=== PATIENT | female | born 1990 | race African-American/Black ===

== ENCOUNTER 2017-12-02 13:42 | Outpatient (CLI) | payer OTHER | END 2017-12-02 13:43 | disposition home or self-care (01) | LOC: BICULT 13:42 | PROVIDERS: ATTEND Family Medicine | DX: Z3A.18 18 weeks gestation of pregnancy; Z34.82 Encounter for supervision of other normal pregnancy, second trimester | CPT/HCPCS: 76805 ==

== ENCOUNTER 2018-04-22 11:34 | Day surgery (SDC) | payer OTHER ==
[2018-04-22 12:07] VITALS: BP 115/64; TEMP 99; BMI 32.4
--- NOTE | 2018-04-22 15:34 | PRG ---
DATE OF ENCOUNTER: 04/22/2018 PRIMARY DAIRY MANAGEMENT SPECIALIST: Dr. Tami Graff. CHIEF COMPLAINT: Abdominal pains. HISTORY OF PRESENT ILLNESS: The patient is a 27-year-old female with an intrauterine at 38 weeks and 2 days, who was representing to Labor and Delivery with abdominal pains, uterine con tractions that she reports have been occurring frequently this morning. The patient has been seen he re in labor and delivery twice in the last 3 days and was seen by Dr. Tami Graff a couple days ago. She reports her contractions . She reports that she was directed by the nursing staff at her d octor's office to come to Labor and Delivery for evaluation. She states the uterine contractions are painful, but are present. She also states that they do not last for very long time, less than a min [place] or two. The patient denies any fever. She denies fall, headache, chest pain, shortness of breat h. She has some nausea, but denies vomiting. She denies any diarrhea, constipation, any new rashes, any vaginal bleeding, or leakage of fluid. She denies hip problems, knee problems, or muscle weakne ss. She denies urinary urgency or frequency. PAST MEDICAL HISTORY: Negative. PAST SURGICAL HISTORY: Negative. ALLERGIES: No known drug allergies. OBSTETRIC HISTORY: The patient has had 3 term deliveries. SOCIAL HISTORY: Denies drug, alcohol, or tobacco use. MEDICATIONS: The patient recently took Keflex for a boil which she has completed now and vi tamins. OB LABS: RPR in the first trimester was nonreactive. GC and chlamydia were negative in the first tr imester. Hepatitis B surface antigen nonreactive in the first trimester. HIV nonreactive in the thi rd trimester. She is rubella immune. Her GBS status is negative. Her one-hour Glucola test 72. REVIEW OF SYSTEMS: Per HPI. PHYSICAL EXAMINATION: VITAL SIGNS: Blood pressure is 115/66, heart rate of 65, temperature 98.5, and respiratory rate 18. GENERAL: She appears to be in no acute distress. She is alert and oriented, cooperative and pleasan t to interact with. HEAD: Normocephalic, atraumatic. LUNGS: Clear to auscultation bilaterally. HEART: Regular rate and rhythm. ABDOMEN: Soft, gravid, nontender. EXTREMITIES: Nontender, nonedematous. PELVIC: Vulva is without masses, lesions or erythema. Vagina is moist. Cervix is very soft. She i s about 4 cm dilated, 60% effaced, and -2 station. heart tracing performed for abdominal pain in . The duration is about 40 minutes. B aseline is noted to be in the 130s with moderate long-term variability, positive 15 x 15 acceleration s, no decelerations. Tocometer shows some irritability and only 1-2 contractions over that period of time. ASSESSMENT AND PLAN: The patient is a 27-year-old female with an intrauterine at 30 weeks and 2 days in false labor at this time. The patient is on likely progress quickly throug h labor once she enters. The patient has been given term labor precautions. She reports she only li ves a couple blocks from the hospital. She has been encouraged to keep her next OB providers appoint ment should she remain until then. She is GBS negative and has a reactive NST.
== END 2018-04-22 12:50 | disposition home or self-care (01) ==
LOC: L&D/OP 11:34
PROVIDERS: ATTEND Family Medicine
DX: O47.1 False labor at or after 37 completed weeks of gestation (principal); Z3A.38 38 weeks gestation of pregnancy
CPT/HCPCS: 99283

== ENCOUNTER 2018-04-22 19:12 | Inpatient (IN) | payer OTHER ==
[~2018-04-22 19:12] MED LIST: Lidocaine 2% MPF 10 ML AMP (For Epidural Use) ONE
[2018-04-22] MEDS ORDERED: Morphine 10 MG/ML VIAL IM SCH (20:00)
[2018-04-22] MEDS ORDERED: Zolpidem Tartrate 5 MG TAB PO PRN (23:46)
[2018-04-22] MEDS ORDERED: Ondansetron HCl/PF 4 MG/2 ML Vial IVP PRN (23:46)
[2018-04-22] MEDS ORDERED: Butorphanol Tartrate 1 MG/ML VIAL SLOW IVP PRN (23:46)
[2018-04-23] MEDS ORDERED: Lactated Ringer's 1,000 ML IV SCH (00:30)
[2018-04-23] MEDS: Lactated Ringer's 1,000 ML IV SCH ×2 (00:30→10:17)
[2018-04-23 00:58] LABS: Hemoglobin 11.4 g/dL (12.0-16.0); Mean Corpuscular Hemoglobin 26.6 pg (27.0-31.0); Mean Corpuscular Volume 80.6 fL (78.0-98.0); Mean Platelet Volume 10.5 fL (7.4-10.4); Platelet Count 115 thou/uL (130-400); RBC Distribution Width 12.7 % (11.5-14.5); Red Blood Cell (RBC) Count 4.28 mill/uL (4.20-5.40); White Blood Cell (WBC) Count 8.5 thou/uL (4.8-10.8)
[2018-04-23 01:29] LABS: HBSAg Index 0.19 S/CO (0-0.99); Hep B Surf Ag Non-Reactive S/CO (NonReactive); Syphilis Antibody Nonreactive (Nonreactive); Syphilis Antibody Index 0.04 S/CO (<1.00 Non-Reactive)
[2018-04-23] MEDS ORDERED: DISCONTINUE ALL PREVIOUS NARCOTICS FS SCH (01:45)
[2018-04-23] MEDS ORDERED: Bupivacaine 0.5% 20 ML, fentaNYL Citrate/PF 400 MCG in Sodium Chloride 0.9% 72 ML EPIDURAL SCH (01:45)
[2018-04-23] MEDS ORDERED: Ondansetron HCl/PF 4 MG/2 ML Vial IVP PRN ×2 (02:21→09:12)
[2018-04-23] MEDS ORDERED: Acetaminophen 325 MG TAB PO PRN (02:21)
[2018-04-23] MEDS ORDERED: Lactated Ringer's 500 ML IV PRN (02:21)
[2018-04-23] MEDS ORDERED: diphenhydrAMINE 50 MG/ML VIAL IVP PRN (02:21)
[2018-04-23] MEDS ORDERED: Promethazine HCl 25 MG/ML VIAL IM PRN (02:21)
[2018-04-23] MEDS ORDERED: Eucerin (Mineral Oil/Petrolatum,White) 30 gm Jar TOP PRN (02:21)
[2018-04-23] MEDS ORDERED: ePHEDrine/0.9% NaCl/PF SYRINGE 50 mg/10 ml SLOW IVP PRN (02:21)
[2018-04-23] MEDS ORDERED: Naloxone HCl 0.4 mg/ml Vial IVP PRN ×2 (02:21)
[2018-04-23] MEDS ORDERED: Communication Order-Pharmacy FS SCH (02:30)
[2018-04-23] MEDS ORDERED: fentaNYL Citrate/PF 400 MCG, Bupivacaine 0.5% 20 ML in Sodium Chloride 0.9% 72 ML EPIDURAL SCH (02:30)
[2018-04-23] MEDS ORDERED: NS / Oxytocin 40 units/1000ml 1,000 ML ONE ×2 (06:02→09:11)
[2018-04-23] MEDS ORDERED: Lidocaine 1% (PF) 30 ML VIAL ONE (06:02)
[2018-04-23] MEDS ORDERED: Bisacodyl 10 MG SUPP PR PRN (09:12)
[2018-04-23] MEDS ORDERED: NS / Oxytocin 40 units/1000ml 1,000 ML IV SCH (09:12)
[2018-04-23] MEDS ORDERED: HYDROcodone/Acetaminophen 5/325 mg Tablet PO PRN (09:12)
[2018-04-23] MEDS ORDERED: Milk Of Magnesia 30 ML UDCUP PO PRN (09:12)
[2018-04-23] MEDS ORDERED: Acetaminophen/Codeine 30-300mg Tablet PO PRN (09:12)
[2018-04-23] MEDS ORDERED: diphenhydrAMINE 25 MG CAP PO PRN (09:12)
[2018-04-23] MEDS ORDERED: Preparation H Ointment 28 GM TUBE PR PRN (09:12)
[2018-04-23] MEDS ORDERED: Benzocaine/Menthol 20-0.5% 60 ML CAN TOP PRN (09:12)
[2018-04-23] MEDS ORDERED: Lanolin Ointment 7 GM TUBE TOP PRN (09:12)
[2018-04-23] MEDS ORDERED: Docusate Calcium (SURFAK) 240 MG CAP PO SCH (09:30)
[2018-04-23] MEDS ORDERED: Ferrous Sulfate 325 MG TAB PO SCH (09:30)
[2018-04-23] MEDS ORDERED: Prenatal Vitamin 1 TAB PO SCH (09:30)
[2018-04-23] MEDS: Ibuprofen 800 MG TAB PO SCH ×2 (13:41→21:54)
[2018-04-23] MEDS: Ferrous Sulfate 325 MG TAB PO SCH (15:39)
[2018-04-23] MEDS: Docusate Calcium (SURFAK) 240 MG CAP PO SCH (21:54)
[2018-04-24] MEDS: Ibuprofen 800 MG TAB PO SCH ×2 (05:48→14:33)
[2018-04-24 08:23] VITALS: BP 105/63; TEMP 98.4
[2018-04-24] MEDS ORDERED: Prenatal Vitamin 1 TAB PO SCH (09:00)
[2018-04-24] MEDS: Docusate Calcium (SURFAK) 240 MG CAP PO SCH (09:14)
[2018-04-24] MEDS: Ferrous Sulfate 325 MG TAB PO SCH ×2 (09:14→15:48)
== END 2018-04-24 16:50 | disposition home or self-care (01) | DRG 775 ==
LOC: L&D/OP 19:12 → L&D 04-23 01:25 → 3SW 04-23 09:19
PROVIDERS: ADMIT Obstetrics & Gynecology; ATTEND Family Medicine
PROC: 10E0XZZ Delivery of Products of Conception, External Approach (ICD-10-PCS; principal; 2018-04-23)
PROC: 10907ZC Drainage of Amniotic Fluid, Therapeutic from Products of Conception, Via Natural or Artificial Opening (ICD-10-PCS; 2018-04-23)
DX: O80 Encounter for full-term uncomplicated delivery (principal); Z3A.38 38 weeks gestation of pregnancy; Z37.0 Single live birth
CPT/HCPCS: 36415; 51702; 85027; 86780; 86850; 86900; 86901; 87340; 99283; 99285; J2001; J2270; J3010; J3490; J7050

== ENCOUNTER 2019-11-08 22:17 | Observation (INO) | payer OTHER, SELFPAY ==
[2019-11-08 23:07] LABS: #Eosinphils 0.1 thou/uL (0.0-0.7); #Lymphocytes 2.5 thou/uL (1.20-3.40); #Monocytes 0.4 thou/uL (0.11-0.59); #Neutrophils 4.9 thou/uL (1.40-6.50); %Basophils 0.4 % (0.0-1.0); %Eosinophils 0.7 % (0.0-10.0); %Lymphocytes 31.6 % (21.0-51.0); %Monocytes 5.5 % (0.0-10.0); %Neutrophils 61.9 % (42.0-75.0); Hemoglobin 11.8 g/dL (12.0-16.0); Mean Corpuscular HGB CONC 32.5 g/dL (32.0-36.0); Mean Corpuscular Hemoglobin 26.2 pg (27.0-31.0); Mean Corpuscular Volume 80.5 fL (78.0-98.0); Mean Platelet Volume 9.7 fL (7.4-10.4); Platelet Count 170 thou/uL (130-400); RBC Distribution Width 13.1 % (11.5-14.5); Red Blood Cell (RBC) Count 4.49 mill/uL (4.20-5.40); White Blood Cell (WBC) Count 7.9 thou/uL (4.8-10.8)
[2019-11-08 23:29] LABS: ALT (SGPT) 16 U/L (8-55); AST (SGOT) 13 U/L (5-34); Albumin 3.9 g/dL (3.5-5.0); Alkaline Phosphatase 61 U/L (40-110); Anion Gap 12 mmol/L (10-20); BUN (Urea Nitrogen) 10 mg/dL (7.0-18.7); Bilirubin, Total 0.4 mg/dL (0.2-1.2); Calc. Creatinine Clearance 0 mL/min (70-130); Calcium 8.8 mg/dL (7.8-10.44); Carbon Dioxide 25 mmol/L (22-29); Chloride 108 mmol/L (98-107); Estimated GFR-MDRD Greater than 90; Globulin 3.5 g/dL (2.4-3.5); Glucose 104 mg/dL (70-105); Potassium 3.5 mmol/L (3.5-5.1); Protein, Total 7.4 g/dL (6.0-8.3); Sodium 141 mmol/L (136-145)
[2019-11-08 23:31] LABS: Bacteria/HPF None Seen HPF (None Seen); Bilirubin Negative (Negative); Blood, Urine Trace (Negative); Clarity Extra Turbid (Clear); Glucose, Urine (Dipstick) Normal (Negative); Leukocyte Negative Leu/uL (Negative); Nitrite Negative (Negative); Protein, Urine (Dipstick) Negative (Neg-Trace); RBC/HPF 0-3 HPF (0-3); Squamous Epithelial 0-3 HPF (0-3); Urobilinogen Normal mg/dL (Less than 2); WBC/HPF None Seen HPF (0-3)
[2019-11-08 23:33] LABS: Pregnancy Test - Urine (BHCG) Negative (Negative); Pregu Control Background? CLEAR/WHITE (CLR/WHITE); Pregu Control Bar Appear? YES (CONTROL BAR)
[2019-11-09] MEDS ORDERED: Morphine 4 MG/ML VIAL ONE (02:10)
[2019-11-09] MEDS ORDERED: Piperacillin/Tazobactam 4.5 GM VIAL ONE (02:10)
[2019-11-09] MEDS ORDERED: Ondansetron PF 4 MG/2 ML Vial ONE ×2 (02:10→11:22)
[2019-11-09] MEDS ORDERED: Ondansetron ODT 4 MG TAB SL PRN (03:18)
[2019-11-09] MEDS ORDERED: Sodium Chloride 0.9% 1,000 ML IV SCH (03:18)
[2019-11-09] MEDS ORDERED: Ondansetron PF 4 MG/2 ML Vial IVP PRN (03:18)
[2019-11-09] MEDS ORDERED: Morphine 4 MG/ML VIAL SLOW IVP PRN (03:19)
[2019-11-09 03:26] VITALS: BMI 35.6
[2019-11-09] MEDS ORDERED: Acetaminophen 500 MG TAB PO PRN (07:01)
[2019-11-09] MEDS ORDERED: Acetaminophen 500 MG TAB PO SCH (07:15)
--- NOTE | 2019-11-09 07:15 | HP ---
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 She has for the last week experienced epigastric right upper quadrant pain, back radiation, nausea. She presents to the emergency room with ultrasound demonstrating gallstones, normal bile duct caliber, and normal liver function test. She is admitted with cholecystitis. ALLERGIES: NONE. SOCIAL HISTORY: Tobacco, occasionally. Alcohol, occasionally. MEDICATIONS: None routinely. PAST SURGICAL AND MEDICAL HISTORY: None routinely. REVIEW OF SYSTEMS: Ten-point noncontributory. PHYSICAL EXAMINATION: VITAL SIGNS: Height 5 feet and 3 inches, 201 pounds, 35 BMI. Temperature 98.7, pulse 66, and blood pressure 120/67. HEAD, EARS, EYES, NOSE, AND THROAT: Unremarkable. Sclerae are nonicteric. LUNGS: Clear to auscultation. CARDIAC: Regular rate and rhythm without murmur or gallop. ABDOMEN: Soft, tenderness in the right upper quadrant. No guarding or rebound. SKIN: Nonjaundiced. NEUROLOGICAL: Intact. EXTREMITIES: No ankle edema. LYMPHATICS: No lymphadenopathy in neck, axilla, or groin. ASSESSMENT AND PLAN: Acute cholecystitis, cholelithiasis. Recommend laparoscopic video cholecystectomy. Risks of infection, bleeding, visceral and biliary injury discussed. Questions answered. Job ID: [id number]
--- NOTE | 2019-11-09 07:41 | ULT ---
PRELIMINARY REPORT/DIRECT RADIOLOGY/EMERGENCY AFTER HOUS PROCEDURE: This report was discussed with Sharer, Clara GREENBERG by Elif Nguyen on Nov 09, 2019 01:27:00 CDT. Addendum electronically signed by Elif Nguyen on November 09, 2019 1:27:43 AM CDT EXAM: US Abdomen Limited, Right Upper Quadrant. CLINICAL HISTORY: Epigastric pain that radiates to back x 1 day, N/V TECHNIQUE: Real-time ultrasound of the right upper quadrant with image documentation. COMPARISON: None provided. FINDINGS: LIVER: Unremarkable. Measures 16.8 cm GALLBLADDER: Cholelithiasis is noted with gallbladder wall thickening at 4.5 mm and pericholecystic f luid is identified with a positive sonographic Valdez's sign. COMMON BILE DUCT: No dilation. Measures 4.5 mm PANCREAS: Unremarkable as visualized. The distal pancreas is obscured by overlying bowel gas. RIGHT KIDNEY: Unremarkable. No hydronephrosis. Measures 10.8 cm IMPRESSION: The findings are consistent with acute cholecystitis ELECTRONICALLY SIGNED BY: Rohit Esparza MD Nov 09, 2019 1:24:08 AM CDT FINAL REPORT RIGHT UPPER QUADRANT ULTRASOUND: DATE: 11/09/2019. COMPARISON: None. HISTORY: Epigastric pain radiating to the back for one day with nausea and vomiting. FINDINGS: I agree with the preliminary report. The pancreas is not well assessed secondary to bowel g as. No focal liver lesion or intrahepatic biliary dilatation. Numerous echogenic stones are seen within the gallbladder lumen. Gallbladder wall appears thickened, measuring of 4-5 mm. Common bile duct caliber is normal, approximately 4-5 mm. The roller billet mill reports a positive Valdez's sign. The right kidney measures 10.9 cm in craniocaudal dimension and demonstrates no evidence for stone, h ydronephrosis, or mass. IMPRESSION: Gallstones with mild gallbladder wall thickening and positive sonographic Valdez's sign, consistent with acute cholecystitis in the proper clinical setting. Transcribed Date/Time: 11/09/2019 8:10 AM
[2019-11-09] MEDS ORDERED: Sodium Chloride 0.9% 100 ML ONE (07:55)
[2019-11-09] MEDS ORDERED: HYDROmorphone 0.5 MG/0.5 ML SYRINGE ONE (07:55)
[2019-11-09] MEDS ORDERED: Piperacillin/Tazobactam 3.375 GM VIAL ONE (07:55)
[2019-11-09] MEDS ORDERED: Fentanyl 100 MCG/2 ML VIAL ONE (07:55)
[2019-11-09] MEDS ORDERED: Lidocaine 1% w/Epinephrine 1:100K 20 ML VIAL ONE (07:57)
[2019-11-09] MEDS ORDERED: Bupivacaine PF 0.5% 30 ML VIAL ONE (07:57)
[2019-11-09] MEDS ORDERED: Scopolamine 1.5 mg/72 hour Patch TD SCH (08:00)
[2019-11-09] MEDS ORDERED: Piperacillin/Tazobactam 3.375 GM in Sodium Chloride 0.9% 100 ML IVPB SCH (09:00)
[2019-11-09] MEDS ORDERED: traMADol HCl 50 MG TAB PO PRN ×2 (09:21)
[2019-11-09] MEDS ORDERED: Ibuprofen 600 MG TAB PO PRN (09:21)
[2019-11-09] MEDS ORDERED: SUGAMMADEX SODIUM 200 MG/2 ML VIAL ONE (09:43)
[2019-11-09] MEDS ORDERED: PHENYLEPHRINE-NS 100 MCG/ML 10 ML SYRINGE ONE (11:22)
[2019-11-09] MEDS ORDERED: Lidocaine 1% PF 5 ML VIAL ONE (11:22)
[2019-11-09] MEDS ORDERED: PROPOFOL 200 MG/20 ML VIAL ONE (11:22)
[2019-11-09] MEDS ORDERED: Dexamethasone 20 MG/5 ML VIAL ONE (11:22)
[2019-11-09] MEDS ORDERED: Rocuronium Bromide 10 MG/ML (10ML VIAL) ONE (11:22)
[2019-11-09] MEDS ORDERED: Ketorolac Tromethamine 30 MG/ML VIAL IVP SCH (12:00)
--- NOTE | 2019-11-09 13:14 | OP ---
DATE OF PROCEDURE: 11/09/2019 PREOPERATIVE DIAGNOSES: [id number] cholecystitis and cholelithiasis. POSTOPERATIVE DIAGNOSES: [id number] cholecystitis and cholelithiasis. PROCEDURE PERFORMED: Laparoscopic video cholecystectomy. ANESTHESIA: General, local 0.5% Marcaine 30 mL mixed with 1% Xylocaine with epinephrine 20 mL. FINDINGS: Acute cholecystitis. Normal liver. DESCRIPTION OF PROCEDURE: The patient was taken to the operating room, where under general anesthesia, abdomen was prepared with ChloraPrep and draped in routine fashion. Local anesthetic was infiltrated in the skin and subcutaneous tissue at each port site. Infraumbilical incision was made, and pneumoperitoneum to 15 mmHg was obtained with a Veress needle, replaced with a 5 port, where laparoscope was inserted. Right subxiphoid incision was made, and an 11 port was placed. Right subcostal incisions were made at midclavicular and anterior axillary line, and 5 ports were placed. Gallbladder was acutely inflamed, thickened wall, edematous, and inflammatory red splotches on it. Fundus was grasped with some difficulty, reflected cephalad. Infundibulum was grasped and retracted laterally. Cystic artery and duct were dissected free. Critical view was obtained. Cystic artery and duct were doubly clipped proximally and divided. Gallbladder was dissected free from liver bed obtaining good hemostasis prior to division of the final peritoneal attachments. Gallbladder and multiple stones were removed and submitted to Pathology. Good hemostasis was assured with cautery. Irrigant and pneumoperitoneum were evacuated. All instruments were removed, and all skin incisions were approximated with subdermal 4-0 Monocryl, and [place] glue was applied. The patient tolerated the procedure well. Job ID: [id number]
--- NOTE | 2019-11-09 15:11 | DIS ---
DATE OF ADMISSION: 11/09/2019 DATE OF DISCHARGE: 11/09/2019 DISCHARGE DIAGNOSES: Acute cholecystitis and cholelithiasis. PROCEDURES: Ultrasound of the gallbladder, laparoscopic video cholecystectomy. DISCHARGE MEDICATIONS: Tylenol and Motrin over the counter, Ultram if needed #30. DISCHARGE INSTRUCTIONS: Follow up in my office in 2 to 3 weeks. Diet and activity as tolerated. No activity restrictions. HISTORY: A 29-year-old female with a 2-week history of intermittent right upper quadrant pain, became persistent, presented to the emergency room. Ultrasound documented gallstones, normal bile duct caliber, normal liver function test, hospitalized overnight, received intravenous antibiotics, IV fluids, and underwent laparoscopic cholecystectomy, after which she was discharged home. Job ID: [id number]
[2019-11-09 15:46] VITALS: BP 105/72; TEMP 98.5
== END 2019-11-09 16:53 | disposition home or self-care (01) ==
LOC: ERS 22:17 → SURG A 11-09 02:20
PROVIDERS: ADMIT Specialist; ATTEND Specialist
PROC: 0FT44ZZ Resection of Gallbladder, Percutaneous Endoscopic Approach (ICD-10-PCS; principal; 2019-11-09)
DX: K80.12 Calculus of gallbladder with acute and chronic cholecystitis without obstruction (principal)
CPT/HCPCS: 36415; 76705; 80053; 81003; 81015; 81025; 83690; 85025; 88304; 96361; 96365; 96375; 96376; G0378; J1100; J1170; J1885; J2001; J2270; J2405; J2543; J2704; J3010; J3490; S0020

== ENCOUNTER 2021-04-25 15:42 | Emergency (ER) | payer OTHER, SELFPAY | END 2021-04-25 16:20 | disposition home or self-care (01) | LOC: ERS 15:42 | DX: U07.1 COVID-19 (principal) | CPT/HCPCS: 99282 ==

== ENCOUNTER 2021-09-17 07:21 | Emergency (ER) | payer SELFPAY ==
[2021-09-17 11:24] LABS: Pregnancy Test - Urine (BHCG) Negative (Negative); Pregu Control Background? CLEAR/WHITE (CLR/WHITE); Pregu Control Bar Appear? YES (CONTROL BAR); Specific Gravity 1.022 (1.002-1.036)
== END 2021-09-17 13:25 | disposition left against medical advice (07) ==
LOC: ERS 07:21
DX: N64.4 Mastodynia (principal); F17.210 Nicotine dependence, cigarettes, uncomplicated
CPT/HCPCS: 81025

== ENCOUNTER 2021-09-23 09:34 | Outpatient (CLI) | payer MEDICAID | END 2021-09-23 09:35 | disposition home or self-care (01) | LOC: BICMAMMO 09:34 | PROVIDERS: ATTEND Nurse Practitioner Women's Health | DX: N64.4 Mastodynia (principal) | CPT/HCPCS: 77066; G0279 ==